=== PATIENT | female | born 1975 | race African-American/Black ===

== ENCOUNTER 2025-02-12 06:24 | Day surgery (SDC) | payer OTHER ==
[2025-02-12 06:51] VITALS: BMI 23.6
[2025-02-12 09:22] VITALS: TEMP 97.5
[2025-02-12 09:46] VITALS: RESP 17
[2025-02-12 09:56] VITALS: BP 125/71; PULSE 68
== END 2025-02-12 09:55 | disposition home or self-care (01) ==
LOC: JASU-ENDO 06:24
PROVIDERS: ATTEND Internal Medicine Gastroenterology
PROC: 0DJD8ZZ Inspection of Lower Intestinal Tract, Via Natural or Artificial Opening Endoscopic (ICD-10-PCS; principal; 2025-02-12 08:00)
DX: Z12.11 Encounter for screening for malignant neoplasm of colon (principal)